=== PATIENT | male | born 1945 | race Caucasian/White ===

== ENCOUNTER → 2016-11-01 | Outpatient (CLI) | payer OTHER ==
--- NOTE | 2016-11-01 11:32 | Diagnostic Imaging Report ---
PROCEDURE: US Bilateral lower extremity arterial. TECHNIQUE: Multiple real-time grayscale images are obtained through both lower extremity arterial systems with color Doppler imaging and color Doppler spectral analysis. INDICATION: Bilateral lower extremity claudication with walking. COMPARISON: None. DISCUSSION: Abnormal biphasic waveforms are present within the bilateral lower extremities. Scattered atherosclerotic plaque is present. No elevated flow velocities to suggest hemodynamically significant stenosis. No arterial occlusion identified. The ABIs are normal measuring 0.94 on the right and 1.1 on the left. Soft tissues are unremarkable. IMPRESSION: 1. No sonographic evidence for hemodynamically significant stenosis or arterial occlusion within either lower extremity. Dictated by: Dictated on workstation # [id number]
== END ==
LOC: RAD 09:18
PROVIDERS: ATTEND Family Medicine
DX: I70.213 Atherosclerosis of native arteries of extremities with intermittent claudication, bilateral legs (principal)
CPT/HCPCS: 93925